=== PATIENT | male | born 1970 | race Caucasian/White ===

== ENCOUNTER 2017-04-15 07:03 | Day surgery (SDC) | payer MEDICAID ==
[2017-04-15] MEDS ORDERED: DEXAMETHASONE PRESERVATIVE FREE 10MG/ML VIAL IV ONE (11:21)
[2017-04-15] MEDS ORDERED: BUPIVACAINE 0.5% W/EPI MPF 30 ML VIAL IVP ONE (11:21)
[2017-04-15] MEDS ORDERED: LIDOCAINE 1% W/EPI 1:200,000 MPF 30ML SQ ONE (11:21)
[2017-04-15] MEDS ORDERED: ACETAMINOPHEN 1,000 MG/100 ML BTL IV ONE (13:06)
[2017-04-15] MEDS ORDERED: PROPOFOL 10 MG/ML VIAL IV ONE (15:09)
[2017-04-15] MEDS ORDERED: LIDOCAINE 2% MDV (20MG/ML) 20ML VIAL IV ONE (15:09)
[2017-04-15] MEDS ORDERED: MIDAZOLAM HCL 2MG/2ML VIAL IV ONE (15:09)
[2017-04-15] MEDS ORDERED: HYDROMORPHONE HCL 2 MG/ML VIAL IV ONE (15:09)
--- NOTE | 2017-04-15 20:25 | Operative Note - [facility] ---
DATE OF SURGERY: 04/15/17 PREOPERATIVE DIAGNOSES: LUMBAR SPONDYLOSIS WITHOUT MYELOPATHY, ICD-10 CODE = M47.816. OPERATION: RADIOFREQUENCY RHIZOTOMY, RIGHT LUMBAR FACETS 2-3, 3-4, 4-5, AND 5- 1. SURGEON: LORRAINE BARRETT D.O. INDICATIONS: This patient presents with primary back pain. Examination with tenderness in the lumbar spine. Range of motion causing pain in the low back with extension. Diagnostics showed 2-3, 3-4 disc space abnormality with spinal stenosis and multilevel facet changes. A facet series with 75-90% pain control. Due to the failure of therapy and successful facet series, the patient presents today for rhizotomy for more long-term relief. PROCEDURE: Intravenous line, vital sign monitoring, IV sedation, prepped and draped in sterile technique under imaging. Facets levels in the lumbar spine in the area of pain were identified and marked at 2-3, 3-4, 4-5, and 5-1. Each one of these points on the skin infiltrated. A #20 gauge rhizotomy cannula positioned. Stimulation trials conducted. Rhizotomy burn performed. Local with anti-inflammatory into the sites. Topical antibiotics. Sterile dressing applied. We will monitor and evaluate. CC: DR. JAY JOB NUMBER: [id number] MTDD
== END 2017-04-15 09:30 | disposition home or self-care (01) ==
LOC: SUR 07:03
PROVIDERS: ATTEND Pain Medicine Interventional Pain Medicine
DX: M47.816 Spondylosis without myelopathy or radiculopathy, lumbar region (principal); F17.200 Nicotine dependence, unspecified, uncomplicated
CPT/HCPCS: 64635; 64636 ×3; 01936; J1100; J1170

== ENCOUNTER 2017-06-17 06:49 | Day surgery (SDC) | payer MEDICAID ==
[2017-06-17] MEDS ORDERED: DEXAMETHASONE PRESERVATIVE FREE 10MG/ML VIAL IV ONE (09:50)
[2017-06-17] MEDS ORDERED: BUPIVACAINE 0.5% W/EPI MPF 30 ML VIAL IVP ONE (09:50)
[2017-06-17] MEDS ORDERED: BUPIVACAINE 0.5% (5MG/ML) PF 30ML VIAL IVP ONE (09:50)
[2017-06-17] MEDS ORDERED: LIDOCAINE 1% W/EPI 1:200,000 MPF 30ML SQ ONE (11:00)
[2017-06-17] MEDS ORDERED: LIDOCAINE 2% MDV (20MG/ML) 20ML VIAL IV ONE (16:05)
[2017-06-17] MEDS ORDERED: FENTANYL PF 100MCG/2ML VIAL IV ONE (16:05)
[2017-06-17] MEDS ORDERED: MIDAZOLAM HCL 2MG/2ML VIAL IV ONE (16:05)
--- NOTE | 2017-06-18 08:00 | Operative Note - [facility] ---
DATE OF SURGERY: 06/17/2017. PREOPERATIVE DIAGNOSIS: CERVICAL SPONDYLOSIS WITHOUT MYELOPATHY, ICD-10 CODE M47.812. POSTOPERATIVE DIAGNOSIS: CERVICAL SPONDYLOSIS WITHOUT MYELOPATHY, ICD-10 CODE M47.812. OPERATION: Fluoroscopically guided infiltration block of bilateral cervical facets 2-3, 3-4, and 4-5. SURGEON: Nahun Cuello D.O. ANESTHESIA: Local sedation. ANESTHESIA PROVIDER: Doe Mccracken CRNA. INDICATION: This patient presents with headaches and neck pain. Examination shows diffuse tenderness in the upper cervical spine. Range of motion causes pain into the neck with extension. Diagnostic studies show multiple endplate changes and diffuse disc abnormality. PROCEDURE: Intravenous line, vital signs, monitoring, and intravenous sedation. Prepped and draped with sterile technique. Cervical facet levels in the area of pain were identified and marked at C2-3, 3-4, and 4-5. Each one of these points on the skin was infiltrated. A 25-gauge, 3.5-inch needle into the facets with 1.0 cc of 0.5 percent Marcaine and dexamethasone injected. This was repeated at each of the sites bilaterally. All areas were cleaned and topical antibiotic and sterile dressings were applied. Will monitor and evaluate. NAHUN CUELLO D.O. Date & Time JOB NUMBER: [id number] cc: Annabel Oliva
== END 2017-06-17 09:10 | disposition home or self-care (01) ==
LOC: SUR 06:49
PROVIDERS: ATTEND Pain Medicine Interventional Pain Medicine
DX: M47.812 Spondylosis without myelopathy or radiculopathy, cervical region (principal)
CPT/HCPCS: 64490; 64491; 64492; 01935; J1100; J3010